=== PATIENT | female | born 1945 | race Caucasian/White ===

== ENCOUNTER 2019-03-02 11:39 | Day surgery (SDC) | payer MEDICARE, OTHER ==
[~2019-03-02] VITALS: Ht 165.1 cm; Wt 59.4 kg
[~2019-03-02 11:39] MED LIST: AMOX500 PO; ASCO500 PO; ASPI81EC PO; CALCIUM PO; CELE200 PO; CHOL10002 PO; FISH1000 PO; FLUT.05NI; GABA300 PO; LEVSOD88 PO; Magnesium500 M1 PO; Multiple Vitam1 EAC1 PO; OMEP20ER PO; ROPI2 PO; SIMV10 PO; TRAZ100 PO
== END 2019-03-02 14:07 | disposition home or self-care (01) ==
LOC: ORSCSDS 11:39
PROVIDERS: Internal Medicine Gastroenterology
PROC: 0DBH8ZX Excision of Cecum, Via Natural or Artificial Opening Endoscopic, Diagnostic (ICD-10-PCS; principal; 2019-03-02 13:00)
DX: Z12.11 Encounter for screening for malignant neoplasm of colon (principal); D12.0 Benign neoplasm of cecum; K57.30 Diverticulosis of large intestine without perforation or abscess without bleeding; Z86.010 Personal history of colon polyps; Z80.0 Family history of malignant neoplasm of digestive organs; Z83.71 Family history of colonic polyps; E07.9 Disorder of thyroid, unspecified; Z79.82 Long term (current) use of aspirin; Z79.899 Other long term (current) drug therapy
CPT/HCPCS: 88305; J2704; J7120

== ENCOUNTER → 2020-08-11 | Outpatient (CLI) | payer MEDICARE, OTHER | LOC: LAB 17:30 → LAB SHORT 17:30 | DX: R30.0 Dysuria (principal) | CPT/HCPCS: 87086 ==